=== PATIENT | female | born 1935 | race Caucasian/White ===

== ENCOUNTER 2016-12-04 18:00 | Inpatient (IN) | payer OTHER ==
[~2016-12-04] VITALS: Ht 160 cm; Wt 37.1 kg
[~2016-12-04 18:00] MED LIST: CALCIUM 500 +1 EAC4 PO; CYANOCOBALAMI100 MCG PO; Fish Oil PO; Glucophage PO; LOTEMAX5 ML RIGHT EYE; METFORMIN HCL500 MG PO; MURO-128 5300 DROP/1 LEFT EYE; PROBIOTIC1 EAC1 PO; Protonix PO; THERAGRAN1 TABLET PO; Tums,OsCal PO; VITAMIN D-32000 UNI1 PO; VITAMIN D1000 INTUN PO; Vitamin D PO; ZOLOFT50 MG PO; Zoloft PO
[2016-12-04 21:29] LABS: HEMATOCRIT 34.4 % (36.0-46.0); MEAN PLAT.VOLUME 9.6 uM^3 (9.5-12.4); PLATELET COUNT 327 K/uL (156-360); RBC DIS.WIDTH-CV 12.8 % (11.8-14.6); RBC DIS.WIDTH-SD 44.6 % (39-53); RED BLOOD COUNT 3.66 M/uL (3.80-5.20); WHITE BLOOD COUNT 13.8 K/uL (4.1-10.2)
[2016-12-04 21:39] LABS: INTER. NORMALIZED RATIO 1.1; PROTHROMBIN TIME 10.7 (9.2-11.2); PTT 25.4 (25-32)
[2016-12-04 21:42] LABS: CHLORIDE 100 mEq/L (99-109); POTASSIUM 4.1 mEq/L (3.7-5.4); SODIUM 134 mEq/L (136-147)
[2016-12-04 21:44] LABS: GLUCOSE 149 mg/dL (70-99)
[2016-12-04 21:45] LABS: ANION GAP 10 MEQ/L (2-14)
[2016-12-04 21:48] LABS: GFR ESTIMATE (CALCULATED) > 59 mL/min/
[2016-12-04 21:49] LABS: UREA NITROGEN (BUN) 18 mg/dL (9-23)
[2016-12-04] MEDS ORDERED: PROBIOTIC1 EAC7 PO (22:04)
[2016-12-04] MEDS ORDERED: VITAMIN B-121000 MC1 SL (22:04)
[2016-12-04] MEDS ORDERED: MURO-128 OPHTH3.5 GM LEFT EYE (22:05)
[2016-12-04] MEDS ORDERED: VITAMIN D31000 UNIT PO (22:05)
[2016-12-05] VITALS (7 sets, daily range): BP systolic 103–132; BP diastolic 52–62
[2016-12-05 06:57] LABS: POINT-OF-CARE METER ID UU14149397
[2016-12-05 08:24] LABS: EOSINOPHIL (%) 0.3 % (0-5); HEMATOCRIT 32.4 % (36.0-46.0); IMMATURE GRANULOCYTE (%) 0.5 % (0.0-0.7); IMMATURE GRANULOCYTE COUNT 0.1 K/uL; INSTRUMENT ABS NEUTROPHIL CT 8.1 K/uL; LYMPHOCYTE COUNT 1.1 K/uL (1.0-2.8); MCH 32.3 PG (29.0-34.0); MCHC 33.6 G/DL (30.0-36.0); MCV 96.1 FL (83-99); MEAN PLAT.VOLUME 9.9 uM^3 (9.5-12.4); MONOCYTE (%) 7.5 % (3-12); MONOCYTE COUNT 0.8 K/uL (0-0.8); NEUTROPHIL (%) 80.2 % (45-76); NEUTROPHIL COUNT 8.1 K/uL (1.8-6.4); PLATELET COUNT 296 K/uL (156-360); RBC DIS.WIDTH-CV 13.4 % (11.8-14.6); RBC DIS.WIDTH-SD 47.7 % (39-53); RED BLOOD COUNT 3.37 M/uL (3.80-5.20)
[2016-12-05 08:50] LABS: ANION GAP 8 MEQ/L (2-14); CHLORIDE 100 MEQ/L (99-109); GFR ESTIMATE (CALCULATED) > 59 mL/min/; GLUCOSE 117 mg/dL (70-99); POTASSIUM 4.2 MEQ/L (3.7-5.4); SAMPLE HEMOLYSIS CHECK 0; SAMPLE ICTERIC CHECK 0; SAMPLE LIPEMIA CHECK 0; SODIUM 136 MEQ/L (136-147); UREA NITROGEN (BUN) 15 mg/dL (9-23)
[2016-12-05 11:19] LABS: ADD MIUA? YES; BILIRUBIN NEGATIVE; BLOOD MODERATE; COLOR YELLOW ((YELLOW)); GLUCOSE (STRIP) 50; KETONES NEGATIVE; LEUKOCYTES NEGATIVE; NITRITE NEGATIVE; PROTEIN (STRIP) NEGATIVE; SPECIFIC GRAVITY 1.015 (1.000-1.030); UROBILINOGEN 0.2 MG/DL (0.2-1.0)
[2016-12-05 12:22] LABS: BACTERIA NONE SEEN /HPF; CALCIUM OXALATE CRYSTALS 1+ /HPF; EPITHELIAL CELLS RARE /HPF; GRANULAR CASTS 0-5 /LPF; MUCUS TRACE /LPF; RED BLOOD CELLS TNTC /HPF (0-5); UCUL ADDED? NO; WHITE BLOOD CELLS 0-5 /HPF (0-5)
[2016-12-05 19:12] LABS: POINT-OF-CARE METER ID UU13113675
[2016-12-05 22:08] LABS: POINT-OF-CARE METER ID UU14149397
[2016-12-06 03:54] VITALS: BP 113/55
[2016-12-06 05:54] LABS: HEMATOCRIT 29.4 % (36.0-46.0)
[2016-12-06 06:54] LABS: INTER. NORMALIZED RATIO 1.1; PROTHROMBIN TIME 11.1 (9.2-11.2)
[2016-12-06 06:59] LABS: POINT-OF-CARE METER ID UU14188577
[2016-12-06 08:15] VITALS: BP 142/65
[2016-12-06 11:29] LABS: POINT-OF-CARE METER ID UU14149397
[2016-12-06 11:31] VITALS: BP 118/58
[2016-12-06 15:59] VITALS: BP 132/94
[2016-12-06 16:08] LABS: POINT-OF-CARE METER ID UU14149397
[2016-12-06 23:52] VITALS: BP 144/67
[2016-12-07 00:29] LABS: POINT-OF-CARE METER ID UU14188577
[2016-12-07 06:09] LABS: EOSINOPHIL (%) 0.8 % (0-5); EOSINOPHIL COUNT 0.1 K/uL (0-0.3); HEMATOCRIT 25.4 % (36.0-46.0); IMMATURE GRANULOCYTE (%) 0.4 % (0.0-0.7); INSTRUMENT ABS NEUTROPHIL CT 7.1 K/uL; LYMPHOCYTE COUNT 1.3 K/uL (1.0-2.8); MCH 32.7 PG (29.0-34.0); MCHC 33.9 G/DL (30.0-36.0); MCV 96.6 FL (83-99); MEAN PLAT.VOLUME 10.1 uM^3 (9.5-12.4); MONOCYTE (%) 11.1 % (3-12); MONOCYTE COUNT 1.1 K/uL (0-0.8); NEUTROPHIL (%) 73.6 % (45-76); NEUTROPHIL COUNT 7.1 K/uL (1.8-6.4); PLATELET COUNT 243 K/uL (156-360); RBC DIS.WIDTH-CV 13.8 % (11.8-14.6); RBC DIS.WIDTH-SD 49.3 % (39-53); WHITE BLOOD COUNT 9.6 K/uL (4.1-10.2)
[2016-12-07 06:26] LABS: RED BLOOD COUNT 2.63 M/uL (3.80-5.20)
[2016-12-07 06:27] LABS: ANION GAP 3 MEQ/L (2-14); CHLORIDE 105 MEQ/L (99-109); GFR ESTIMATE (CALCULATED) > 59 mL/min/; GLUCOSE 153 mg/dL (70-99); POTASSIUM 3.8 MEQ/L (3.7-5.4); SAMPLE HEMOLYSIS CHECK 0; SAMPLE ICTERIC CHECK 0; SAMPLE LIPEMIA CHECK 0; SODIUM 135 MEQ/L (136-147); UREA NITROGEN (BUN) 11 mg/dL (9-23)
[2016-12-07 07:14] LABS: INTER. NORMALIZED RATIO 1.4; PROTHROMBIN TIME 14.1 (9.2-11.2)
[2016-12-07 08:18] VITALS: BP 128/60
[2016-12-07 11:50] LABS: POINT-OF-CARE METER ID UU14188577
[2016-12-07 16:31] LABS: ADD MIUA? YES; BILIRUBIN NEGATIVE; BLOOD NEGATIVE; COLOR YELLOW ((YELLOW)); GLUCOSE (STRIP) >=500; KETONES NEGATIVE; LEUKOCYTES TRACE; NITRITE NEGATIVE; PROTEIN (STRIP) NEGATIVE; SPECIFIC GRAVITY 1.014 (1.000-1.030); UROBILINOGEN 0.2 MG/DL (0.2-1.0)
[2016-12-07 16:36] LABS: POINT-OF-CARE METER ID UU14188577
[2016-12-07 16:50] LABS: BACTERIA NONE SEEN /HPF; EPITHELIAL CELLS NONE SEEN /HPF; MUCUS TRACE /LPF; WHITE BLOOD CELLS 0-5 /HPF (0-5)
[2016-12-07 22:33] LABS: POINT-OF-CARE METER ID UU14149397
[2016-12-07 23:52] VITALS: BP 135/62
[2016-12-08 01:12] LABS: POINT-OF-CARE METER ID UU14149397
[2016-12-08 06:26] LABS: POINT-OF-CARE METER ID UU14188577
[2016-12-08 06:54] LABS: HEMATOCRIT 25.1 % (36.0-46.0); MCH 31.4 PG (29.0-34.0); MCHC 32.7 G/DL (30.0-36.0); MCV 96.2 FL (83-99); MEAN PLAT.VOLUME 10.6 uM^3 (9.5-12.4); PLATELET COUNT 272 K/uL (156-360); RBC DIS.WIDTH-CV 13.4 % (11.8-14.6); RED BLOOD COUNT 2.61 M/uL (3.80-5.20); WHITE BLOOD COUNT 9.3 K/uL (4.1-10.2)
[2016-12-08 07:12] LABS: ANION GAP 5 MEQ/L (2-14); CHLORIDE 101 MEQ/L (99-109); GFR ESTIMATE (CALCULATED) > 59 mL/min/; GLUCOSE 134 mg/dL (70-99); SAMPLE HEMOLYSIS CHECK 0; SAMPLE ICTERIC CHECK 0; SAMPLE LIPEMIA CHECK 0; SODIUM 134 MEQ/L (136-147); UREA NITROGEN (BUN) 11 mg/dL (9-23)
[2016-12-08 07:13] LABS: INTER. NORMALIZED RATIO 1.3
[2016-12-08] MEDS ORDERED: DOCUSATE SODIU100 MG PO (07:17)
[2016-12-08] MEDS ORDERED: CYCLOBENZAPRINE5 MG PO (07:17)
[2016-12-08] MEDS ORDERED: POLYETHYLENE GL17 GM PO (07:17)
[2016-12-08] MEDS ORDERED: ONDANSETRON ODT4 MG PO (07:17)
[2016-12-08] MEDS ORDERED: HYDROCODON-ACE1 EAC7 PO (07:17)
[2016-12-08] MEDS ORDERED: Tylenol Extra Streng PO (07:17)
[2016-12-08] MEDS ORDERED: HEPARIN SO5000 UNITS SC (07:17)
[2016-12-08 08:17] VITALS: BP 116/56
[2016-12-08 11:44] LABS: POINT-OF-CARE METER ID UU14188577
== END 2016-12-08 12:50 | DRG 481 ==
LOC: EME → EDBD 18:00 → EME 18:00 → 3EAST 23:52 → EDOF 23:52 → 3EAST 12-05 01:02
PROVIDERS: Emergency Medicine; Orthopaedic Surgery; Pediatrics; Physician Assistant; Physician Assistant Medical
PROC: 0QS734Z Reposition Left Upper Femur with Internal Fixation Device, Percutaneous Approach (ICD-10-PCS; principal; 2016-12-05)
DX: S72.142A Displaced intertrochanteric fracture of left femur, initial encounter for closed fracture (principal); E87.1 Hypo-osmolality and hyponatremia; D62 Acute posthemorrhagic anemia; W01.0XXA Fall on same level from slipping, tripping and stumbling without subsequent striking against object, initial encounter; R31.9 Hematuria, unspecified; I10 Essential (primary) hypertension; E11.9 Type 2 diabetes mellitus without complications; F32.9 Major depressive disorder, single episode, unspecified; M81.0 Age-related osteoporosis without current pathological fracture; Y92.002 Bathroom of unspecified non-institutional (private) residence as the place of occurrence of the external cause; Y93.E1 Activity, personal bathing and showering; Y99.8 Other external cause status; Z94.7 Corneal transplant status
CPT/HCPCS: 71010; 73501; 73502; 73560; 76000; 80048; 81003; 82948; 85014; 85018; 85025; 85027; 85610; 85730; 86850; 86900; 86901; 87086; 93005; 99281; 99285; C1713; J0690; J1170; J1644; J1815; J1885; J2405; J2765; J3010; J7030

== ENCOUNTER 2017-01-12 10:19 | Emergency (ER) | payer OTHER ==
[~2017-01-12] VITALS: Ht 160 cm; Wt 39.8 kg
[~2017-01-12 10:19] MED LIST changes: +CYCLOBENZAPRINE5 MG PO; +DOCUSATE SODIU100 MG PO; +HEPARIN SO5000 UNITS SC; +HYDROCODON-ACE1 EAC7 PO; +MURO-128 OPHTH3.5 GM LEFT EYE; +ONDANSETRON ODT4 MG PO; +POLYETHYLENE GL17 GM PO; +PROBIOTIC1 EAC7 PO; +Tylenol Extra Streng PO; +VITAMIN B-121000 MC1 SL; +VITAMIN D31000 UNIT PO
[2017-01-12 11:23] LABS: HEMATOCRIT 36.6 % (36.0-46.0); MCH 31.6 PG (29.0-34.0); MCHC 32.5 G/DL (30.0-36.0); MEAN PLAT.VOLUME 9.6 uM^3 (9.5-12.4); RBC DIS.WIDTH-CV 13.1 % (11.8-14.6); RBC DIS.WIDTH-SD 47.4 % (39-53); WHITE BLOOD COUNT 6.9 K/uL (4.1-10.2)
[2017-01-12 11:33] LABS: CHLORIDE 98 mEq/L (99-109); POTASSIUM 4.8 mEq/L (3.7-5.4); SODIUM 134 mEq/L (136-147)
[2017-01-12 11:35] LABS: GLUCOSE 150 mg/dL (70-99)
[2017-01-12 11:36] LABS: ANION GAP 9 MEQ/L (2-14)
[2017-01-12 11:37] LABS: TOTAL BILIRUBIN 0.4 mg/dL (0.0-1.0)
[2017-01-12 11:38] LABS: ALKALINE PHOSPHATASE 216 IU/L (3-129); MCV 97.1 FL (83-99); PLATELET COUNT 589 K/uL (156-360); RED BLOOD COUNT 3.77 M/uL (3.80-5.20)
[2017-01-12 11:39] LABS: GFR ESTIMATE (CALCULATED) > 59 mL/min/
[2017-01-12 11:40] LABS: UREA NITROGEN (BUN) 14 mg/dL (9-23)
[2017-01-12 13:08] LABS: ADD MIUA? YES; BILIRUBIN NEGATIVE; BLOOD NEGATIVE; COLOR YELLOW ((YELLOW)); GLUCOSE (STRIP) NEGATIVE; KETONES NEGATIVE; LEUKOCYTES LARGE; NITRITE NEGATIVE; PROTEIN (STRIP) 30; SPECIFIC GRAVITY 1.006 (1.000-1.030); UROBILINOGEN 0.2 MG/DL (0.2-1.0)
[2017-01-12 13:23] LABS: BACTERIA RARE /HPF; EPITHELIAL CELLS RARE /HPF; HYALINE CASTS 20-30 /LPF; MUCUS TRACE /LPF; UCUL ADDED? NO; UNCLASSIFIED CASTS 0-5 /LPF; WHITE BLOOD CELLS 15-20 /HPF (0-5)
[2017-01-12] MEDS ORDERED: ZOFRAN ODT4 MG PO (14:59)
[2017-01-12] MEDS ORDERED: TYLENOL WITH C1 EACH PO (14:59)
[2017-01-12 15:05] VITALS: BP 146/63
== END 2017-01-12 15:20 | disposition home or self-care (01) ==
LOC: EME → EDBD 10:19 → EXP 10:19 → EME 10:19 → EXP 15:20
PROVIDERS: Physician Assistant
DX: K52.9 Noninfective gastroenteritis and colitis, unspecified (principal); E87.1 Hypo-osmolality and hyponatremia; F32.9 Major depressive disorder, single episode, unspecified; E11.9 Type 2 diabetes mellitus without complications
CPT/HCPCS: 74177; 80053; 81003; 85027; 87077; 87086; 87186; 99281; 99284; J2405; J7030

== ENCOUNTER 2017-09-04 09:43 | Inpatient (IN) | payer OTHER ==
[~2017-09-04] VITALS: Ht 154.9 cm; Wt 35.8 kg
[~2017-09-04 09:43] MED LIST changes: -CALCIUM 500 +1 EAC4 PO; +CALCIUM 500 +1 EACH PO; +TYLENOL WITH C1 EACH PO; +ZOFRAN ODT4 MG PO
[2017-09-04] MEDS ORDERED: COLACE100 MG PO (10:14)
[2017-09-04 13:24] LABS: HEMATOCRIT 37.8 % (36.0-46.0); MCH 32.6 PG (29.0-34.0); MCHC 34.1 G/DL (30.0-36.0); MCV 95.5 FL (83-99); MEAN PLAT.VOLUME 9.8 uM^3 (9.5-12.4); PLATELET COUNT 335 K/uL (156-360); RBC DIS.WIDTH-CV 12.7 % (11.8-14.6); RBC DIS.WIDTH-SD 45.1 % (39-53); RED BLOOD COUNT 3.96 M/uL (3.80-5.20); WHITE BLOOD COUNT 6.8 K/uL (4.1-10.2)
[2017-09-04 13:39] LABS: CHLORIDE 103 mEq/L (99-109); POTASSIUM 4.3 mEq/L (3.7-5.4); SODIUM 139 mEq/L (136-147)
[2017-09-04 13:41] LABS: GLUCOSE 133 mg/dL (70-99)
[2017-09-04 13:42] LABS: ANION GAP 8 MEQ/L (2-14)
[2017-09-04 13:45] LABS: GFR ESTIMATE (CALCULATED) > 59 mL/min/
[2017-09-04 13:46] LABS: UREA NITROGEN (BUN) 12 mg/dL (9-23)
[2017-09-04] MEDS ORDERED: TYLENOL EXTRA500 MG PO (16:23)
[2017-09-04] MEDS ORDERED: PROTONIX40 MG PO (16:23)
[2017-09-04 17:26] LABS: PREALBUMIN 16.9 mg/dL (10-40)
[2017-09-04 19:30] VITALS: BP 116/55
[2017-09-04 20:33] VITALS: BP 112/59
[2017-09-04 22:45] LABS: ADD MIUA? YES; BILIRUBIN NEGATIVE; BLOOD NEGATIVE; COLOR YELLOW ((YELLOW)); GLUCOSE (STRIP) NEGATIVE; KETONES NEGATIVE; LEUKOCYTES NEGATIVE; NITRITE NEGATIVE; PROTEIN (STRIP) NEGATIVE; SPECIFIC GRAVITY 1.017 (1.000-1.030); UROBILINOGEN 0.2 MG/DL (0.2-1.0)
[2017-09-04 22:51] LABS: BACTERIA RARE /HPF; EPITHELIAL CELLS RARE /HPF; MUCUS 1+ /LPF; WHITE BLOOD CELLS 0-5 /HPF (0-5)
[2017-09-04 23:13] VITALS: BP 141/66
[2017-09-05 03:49] VITALS: BP 175/78
[2017-09-05 04:00] VITALS: BP 148/82
[2017-09-05 06:51] LABS: BASOPHIL COUNT 0.1 K/uL (0-0.1); EOSINOPHIL (%) 3.5 % (0-5); EOSINOPHIL COUNT 0.3 K/uL (0-0.3); IMMATURE GRANULOCYTE (%) 0.3 % (0.0-0.7); INSTRUMENT ABS NEUTROPHIL CT 4.8 K/uL; LYMPHOCYTE COUNT 1.7 K/uL (1.0-2.8); MCH 32.1 PG (29.0-34.0); MCHC 33.5 G/DL (30.0-36.0); MCV 95.9 FL (83-99); MEAN PLAT.VOLUME 9.7 uM^3 (9.5-12.4); MONOCYTE (%) 9.5 % (3-12); MONOCYTE COUNT 0.7 K/uL (0-0.8); NEUTROPHIL (%) 63.8 % (45-76); NEUTROPHIL COUNT 4.8 K/uL (1.8-6.4); PLATELET COUNT 352 K/uL (156-360); RBC DIS.WIDTH-CV 13.1 % (11.8-14.6); RBC DIS.WIDTH-SD 46.6 % (39-53); RED BLOOD COUNT 3.86 M/uL (3.80-5.20); WHITE BLOOD COUNT 7.5 K/uL (4.1-10.2)
[2017-09-05 07:06] LABS: POINT-OF-CARE METER ID UU14149397
[2017-09-05 07:15] LABS: ANION GAP 6 MEQ/L (2-14); CHLORIDE 103 MEQ/L (99-109); GFR ESTIMATE (CALCULATED) > 59 mL/min/; GLUCOSE 133 mg/dL (70-99); POTASSIUM 4.1 MEQ/L (3.7-5.4); SAMPLE HEMOLYSIS CHECK 0; SAMPLE ICTERIC CHECK 0; SAMPLE LIPEMIA CHECK 0; SODIUM 139 MEQ/L (136-147); UREA NITROGEN (BUN) 16 mg/dL (9-23)
[2017-09-05 07:32] VITALS: BP 114/56
[2017-09-05 11:23] VITALS: BP 131/63
[2017-09-05 12:03] LABS: POINT-OF-CARE METER ID UU14208753
[2017-09-05] MEDS ORDERED: TRAMADOL HCL50 MG PO (14:19)
[2017-09-05] MEDS ORDERED: TORADOL10 MG PO (14:19)
[2017-09-05 15:13] VITALS: BP 144/67
== END 2017-09-05 19:05 | disposition home health service (06) | DRG 543 ==
LOC: EME 09:43 → EDOF 14:39 → ENRESERV 14:52 → 3EAST 19:13
PROVIDERS: Emergency Medicine; Internal Medicine; Physician Assistant
DX: M80.88XA Other osteoporosis with current pathological fracture, vertebra(e), initial encounter for fracture (principal); S00.01XA Abrasion of scalp, initial encounter; W19.XXXA Unspecified fall, initial encounter; Y93.E1 Activity, personal bathing and showering; Y92.002 Bathroom of unspecified non-institutional (private) residence as the place of occurrence of the external cause; G89.11 Acute pain due to trauma; E46 Unspecified protein-calorie malnutrition; R64 Cachexia; Z68.1 Body mass index [BMI] 19.9 or less, adult; Z60.2 Problems related to living alone; E11.9 Type 2 diabetes mellitus without complications; F32.9 Major depressive disorder, single episode, unspecified; G89.29 Other chronic pain; M54.5 Low back pain; R10.816 Epigastric abdominal tenderness; K59.00 Constipation, unspecified; Z66 Do not resuscitate; Z85.3 Personal history of malignant neoplasm of breast; Z90.710 Acquired absence of both cervix and uterus; Z90.81 Acquired absence of spleen; Z79.84 Long term (current) use of oral hypoglycemic drugs; Z94.7 Corneal transplant status; Z80.49 Family history of malignant neoplasm of other genital organs; Z83.3 Family history of diabetes mellitus
CPT/HCPCS: 70450; 72128; 72131; 74176; 80048; 81003; 82040; 82306; 82948; 84134; 85025; 85027; 87077; 87086; 87186; 99281; 99285; J1644; J1885

== ENCOUNTER 2017-09-08 11:20 | Emergency (ER) | payer OTHER ==
[~2017-09-08] VITALS: Ht 154.9 cm; Wt 36.4 kg
[~2017-09-08 11:20] MED LIST changes: +COLACE100 MG PO; +PROTONIX40 MG PO; +TORADOL10 MG PO; +TRAMADOL HCL50 MG PO; +TYLENOL EXTRA500 MG PO
[2017-09-08] MEDS ORDERED: MOTRIN600 MG PO (14:15)
[2017-09-08] MEDS ORDERED: PERCOCET 5/31 TABLET PO (14:15)
[2017-09-08] MEDS ORDERED: ZOFRAN4 MG PO (14:38)
[2017-09-08 14:47] VITALS: BP 150/72
== END 2017-09-08 14:48 | disposition home or self-care (01) ==
LOC: EME 11:20
DX: M54.6 Pain in thoracic spine (principal); R10.9 Unspecified abdominal pain; S32.019D Unspecified fracture of first lumbar vertebra, subsequent encounter for fracture with routine healing; S32.029D Unspecified fracture of second lumbar vertebra, subsequent encounter for fracture with routine healing; S32.039D Unspecified fracture of third lumbar vertebra, subsequent encounter for fracture with routine healing; S32.049D Unspecified fracture of fourth lumbar vertebra, subsequent encounter for fracture with routine healing; S32.059D Unspecified fracture of fifth lumbar vertebra, subsequent encounter for fracture with routine healing; S22.079D Unspecified fracture of T9-T10 vertebra, subsequent encounter for fracture with routine healing; W19.XXXD Unspecified fall, subsequent encounter; Z90.49 Acquired absence of other specified parts of digestive tract; Z90.710 Acquired absence of both cervix and uterus; Z90.81 Acquired absence of spleen
CPT/HCPCS: 99281; 99284

== ENCOUNTER → 2017-10-15 | Outpatient (CLI) | payer OTHER ==
[~2017-10-15] VITALS: Ht 160 cm; Wt 39.0 kg
[~2017-10-15] MED LIST changes: +MOTRIN600 MG PO; +PANTOPRAZOLE SO40 MG PO; +PERCOCET 5/31 TABLET PO; +ZOFRAN4 MG PO
== END | disposition home or self-care (01) ==
LOC: AMB 10:47
PROC: 0DJ08ZZ Inspection of Upper Intestinal Tract, Via Natural or Artificial Opening Endoscopic (ICD-10-PCS; principal; 2017-10-15)
DX: R10.10 Upper abdominal pain, unspecified (principal); Z87.19 Personal history of other diseases of the digestive system; R79.89 Other specified abnormal findings of blood chemistry; Z90.49 Acquired absence of other specified parts of digestive tract; K21.0 Gastro-esophageal reflux disease with esophagitis; E46 Unspecified protein-calorie malnutrition; E11.40 Type 2 diabetes mellitus with diabetic neuropathy, unspecified; Z94.7 Corneal transplant status; Z83.3 Family history of diabetes mellitus; Z80.9 Family history of malignant neoplasm, unspecified; Z81.8 Family history of other mental and behavioral disorders
CPT/HCPCS: C1726; J0330; J1100; J2405; J3010